=== PATIENT | male | born 1950 | race Caucasian/White ===

== ENCOUNTER 2020-07-18 13:15 | Inpatient (IN) | payer MEDICARE, MEDICAID ==
[~2020-07-18] VITALS: Ht 165.1 cm; Wt 60.5 kg
[2020-07-18] MEDS ORDERED: ASPirin 81 mg TAB PO ONE (14:15)
[2020-07-18 14:28] LABS: Albumin 3.3 g/dL (3.4-5.0); Anion Gap 5 (5-15); Blood Urea Nitrogen 23 mg/dL (7-18); Calcium 8.6 mg/dL (8.5-10.1); Carbon Dioxide 24 mmol/L (21-32); Chloride 107 mmol/L (98-107); Glucose 90 mg/dL (74-106); Magnesium 2.3 mg/dL (1.6-2.6); Potassium 4.1 mmol/L (3.5-5.1); Sodium 136 mmol/L (136-145)
[2020-07-18 14:29] LABS: INR 1.02 (0.9-1.15); Partial Thromboplastin Time 28.1 sec (23.0-31.2)
[2020-07-18 14:37] LABS: Alanine Aminotransferase 29 U/L (16-61); Alkaline Phosphatase 77 U/L (45-117); Aspartate Aminotransferase 21 U/L (15-37); BUN/Creatinine Ratio 27.7; Bilirubin, Total 0.4 mg/dL (0.2-1.0); GFR African American 118 mL/min; GFR Non-African American 98 mL/min; Total Protein 7.3 g/dL (6.4-8.2)
[2020-07-18 14:41] LABS: Basophils # (auto) 0 10 ^3/uL (0-0.2); Basophils % (auto) 0.5 % (0.0-2.0); Eosinophils # (auto) 0.1 10 ^3/uL (0-0.8); Eosinophils % (auto) 1.9 % (0.0-7.0); Hematocrit 40.4 % (41.0-53.0); Hemoglobin 14.3 g/dL (13.5-17.5); Lymphocytes # (auto) 1.8 10 ^3/uL (0.4-5.4); Lymphocytes % (auto) 27.6 % (10.0-50.0); Mean Corpuscular Hgb Conc. 35.3 g/dL (32.0-36.0); Mean Corpuscular Volume 87.9 fL (80.0-100.0); Monocytes # (auto) 0.7 10 ^3/uL (0-1.3); Monocytes % (auto) 10.4 % (0.0-12.0); Neutrophils # (auto) 3.8 10 ^3/uL (1.6-8.6); Neutrophils % (auto) 59.6 % (37.0-80.0); Platelet Count (auto) 243 10^3/uL (140-450); Red Cell Distribution Width 13.3 % (11.8-14.3); White Blood Cell 6.4 10^3/uL (4.4-10.8)
[2020-07-18] MEDS ORDERED: NITROGLYCERIN 0.4 MG SL TAB SL PRN ×3 (16:15→20:45)
[2020-07-18] MEDS ORDERED: LACTATED RINGER'S 1,000 ML IV ONE (16:15)
[2020-07-18] MEDS ORDERED: MORPHINE SULF INJ 2 MG/ML SYRINGE 1ML IV PRN ×3 (16:15→20:45)
[2020-07-18] MEDS ORDERED: ASPI-498 PO (16:55)
[2020-07-18] MEDS ORDERED: BUPR-36 PO (16:55)
[2020-07-18] MEDS ORDERED: POM PO (16:58)
[2020-07-18] MEDS: SODIUM CHLORIDE 0.9% 1,000 ML IV SCH (20:45)
[2020-07-18] MEDS ORDERED: LORazepam 0.5 MG TAB PO PRN (20:45)
[2020-07-18] MEDS ORDERED: METOPROLOL TARTRATE 25 MG TAB PO ONE (20:45)
[2020-07-18] MEDS ORDERED: HYDROcodone-ACET 5/325MG TAB PO PRN (20:45)
[2020-07-18] MEDS ORDERED: KETOROLAC TROMETH 30 MG/ML 1ML VIAL IV ONE (20:45)
[2020-07-18] MEDS ORDERED: ALUM & MAG HYDROX-SIMETH LIQ(MAALOX) 30 ML PO ONE (20:45)
[2020-07-18] MEDS ORDERED: MORPHINE SULFATE 4 MG/ML SYR/VIAL IV PRN (20:45)
[2020-07-18] MEDS ORDERED: ONDANSETRON HCL 4 MG/2 ML VIAL IV PRN (20:45)
[2020-07-18] MEDS ORDERED: ATORVASTATIN 20 MG TAB PO ONE (20:45)
[2020-07-18] MEDS: CARVEDILOL 3.125 MG TAB PO SCH ×2 (21:29→21:53)
[2020-07-18] MEDS: FAMOTIDINE (10MG/ML) 2ML VL IV SCH (21:35)
[2020-07-19 02:22] LABS: Urine Bacteria FEW /hpf (None Seen); Urine Blood Negative /uL (Negative); Urine Specific Gravity 1.019 (1.001-1.035); Urine WBC 2 /hpf (0 - 3)
[2020-07-19 02:55] LABS: Alcohol, Urine < 3.0 mg/dL (0-10); Amphetamine Screen, Urine NEGATIVE (NEGATIVE); Barbiturate Scree,Urine NEGATIVE (NEGATIVE); Benzodiazephine Screen, Urine NEGATIVE (NEGATIVE); Cocaine Screen, Urine NEGATIVE (NEGATIVE); Opiate Scree,Urine NEGATIVE (NEGATIVE); Phencyclidine Screen, Urine NEGATIVE (NEGATIVE)
[2020-07-19 03:02] LABS: Cannabinoid Screen, Urine POSITIVE (NEGATIVE)
[2020-07-19] MEDS ORDERED: KETOROLAC TROMETH 30 MG/ML 1ML VIAL IV PRN (03:30)
[2020-07-19] MEDS ORDERED: POM (05:18)
[2020-07-19] MEDS ORDERED: ASPI-543 PO (05:18)
[2020-07-19] MEDS ORDERED: BUPR100T14 PO (05:18)
[2020-07-19] MEDS: buPROPion HCL 100 MG TAB PO SCH ×2 (06:06→14:57)
[2020-07-19 07:39] LABS: Basophils # (auto) 0 10 ^3/uL (0-0.2); Basophils % (auto) 0.4 % (0.0-2.0); Eosinophils # (auto) 0.1 10 ^3/uL (0-0.8); Eosinophils % (auto) 1.9 % (0.0-7.0); Hematocrit 39.8 % (41.0-53.0); Lymphocytes # (auto) 1.1 10 ^3/uL (0.4-5.4); Lymphocytes % (auto) 20.3 % (10.0-50.0); Mean Corpuscular Hgb Conc. 35.2 g/dL (32.0-36.0); Monocytes # (auto) 0.4 10 ^3/uL (0-1.3); Monocytes % (auto) 8.1 % (0.0-12.0); Neutrophils # (auto) 3.8 10 ^3/uL (1.6-8.6); Neutrophils % (auto) 69.3 % (37.0-80.0); Nucleated Red Blood Cells % 0.1 %; Platelet Count (auto) 218 10^3/uL (140-450); Red Blood Cells 4.53 10^6/uL (4.5-5.90); Red Cell Distribution Width 13.2 % (11.8-14.3); White Blood Cell 5.5 10^3/uL (4.4-10.8)
[2020-07-19 08:00] LABS: INR 1.05 (0.9-1.15); Partial Thromboplastin Time 30.6 sec (23.0-31.2)
[2020-07-19 08:14] LABS: Albumin 3.3 g/dL (3.4-5.0); Calcium 8.8 mg/dL (8.5-10.1); Magnesium 2.7 mg/dL (1.6-2.6); Potassium 4.2 mmol/L (3.5-5.1)
[2020-07-19 08:18] LABS: BUN/Creatinine Ratio 19.8; Bilirubin, Total 0.6 mg/dL (0.2-1.0); Phosphorus 2.6 mg/dL (2.5-4.90); Total Protein 6.9 g/dL (6.4-8.2)
[2020-07-19 09:24] VITALS: BP 115/77
[2020-07-19] MEDS: FAMOTIDINE (10MG/ML) 2ML VL IV SCH ×2 (10:00→22:00)
[2020-07-19] MEDS: ENOXAPARIN SOD 60 MG/0.6 ML SYRINGE SC SCH (10:54)
[2020-07-19] MEDS: ASPirin 81 mg TAB PO SCH (10:55)
[2020-07-19] MEDS: DOCUSATE SOD 100 MG CAP PO SCH (10:55)
[2020-07-19] MEDS: CARVEDILOL 3.125 MG TAB PO SCH (10:57)
[2020-07-19 17:00] VITALS: BP 135/81
[2020-07-19 20:00] VITALS: BP 115/75
[2020-07-19] MEDS: SODIUM CHLORIDE 0.9% 1,000 ML IV SCH (20:45)
[2020-07-19 22:00] VITALS: BP 115/75
[2020-07-19] MEDS: ATORVASTATIN 20 MG TAB PO SCH (22:00)
[2020-07-20 05:00] VITALS: BP 128/87
[2020-07-20] MEDS: buPROPion HCL 100 MG TAB PO SCH ×2 (06:07→16:16)
[2020-07-20 06:37] LABS: Basophils # (auto) 0 10 ^3/uL (0-0.2); Basophils % (auto) 0.3 % (0.0-2.0); Eosinophils # (auto) 0.1 10 ^3/uL (0-0.8); Eosinophils % (auto) 2.1 % (0.0-7.0); Hematocrit 43.2 % (41.0-53.0); Hemoglobin 15.1 g/dL (13.5-17.5); Lymphocytes # (auto) 1.5 10 ^3/uL (0.4-5.4); Lymphocytes % (auto) 25.2 % (10.0-50.0); Mean Corpuscular Hemoglobin 31.1 pg (28.0-32.0); Mean Corpuscular Volume 88.9 fL (80.0-100.0); Monocytes # (auto) 0.5 10 ^3/uL (0-1.3); Monocytes % (auto) 9.1 % (0.0-12.0); Neutrophils # (auto) 3.8 10 ^3/uL (1.6-8.6); Neutrophils % (auto) 63.3 % (37.0-80.0); Nucleated Red Blood Cells % 0.1 %; Platelet Count (auto) 260 10^3/uL (140-450); Red Blood Cells 4.87 10^6/uL (4.5-5.90); Red Cell Distribution Width 13.3 % (11.8-14.3)
[2020-07-20 06:43] LABS: Chloride 106 mmol/L (98-107)
[2020-07-20 06:48] LABS: BUN/Creatinine Ratio 23.2; Blood Urea Nitrogen 19 mg/dL (7-18); Calcium 8.8 mg/dL (8.5-10.1); Carbon Dioxide 24 mmol/L (21-32); GFR African American 120 mL/min; GFR Non-African American 99 mL/min; Glucose 94 mg/dL (74-106)
[2020-07-20 07:32] LABS: Anion Gap 6 (5-15); Sodium 136 mmol/L (136-145)
[2020-07-20 08:00] VITALS: BP 130/75
[2020-07-20] MEDS: ENOXAPARIN SOD 60 MG/0.6 ML SYRINGE SC SCH (10:05)
[2020-07-20] MEDS: ASPirin 81 mg TAB PO SCH (10:05)
[2020-07-20] MEDS: FAMOTIDINE (10MG/ML) 2ML VL IV SCH ×2 (10:05→22:20)
[2020-07-20] MEDS: CARVEDILOL 3.125 MG TAB PO SCH ×2 (10:06→22:20)
[2020-07-20] MEDS: DOCUSATE SOD 100 MG CAP PO SCH (10:07)
[2020-07-20 15:30] VITALS: BP 116/71
[2020-07-20 22:00] VITALS: BP 129/80
[2020-07-20] MEDS: SODIUM CHLORIDE 0.9% 1,000 ML IV SCH (22:19)
[2020-07-20] MEDS: ATORVASTATIN 20 MG TAB PO SCH (22:28)
[2020-07-21 05:00] VITALS: BP 115/75
[2020-07-21] MEDS: buPROPion HCL 100 MG TAB PO SCH ×2 (06:23→19:03)
[2020-07-21 07:01] LABS: Basophils # (auto) 0 10 ^3/uL (0-0.2); Basophils % (auto) 0.4 % (0.0-2.0); Eosinophils # (auto) 0.1 10 ^3/uL (0-0.8); Eosinophils % (auto) 1.9 % (0.0-7.0); Lymphocytes # (auto) 1.4 10 ^3/uL (0.4-5.4); Lymphocytes % (auto) 19.8 % (10.0-50.0); Mean Corpuscular Hemoglobin 31.4 pg (28.0-32.0); Mean Corpuscular Hgb Conc. 35.8 g/dL (32.0-36.0); Mean Corpuscular Volume 87.7 fL (80.0-100.0); Monocytes # (auto) 0.6 10 ^3/uL (0-1.3); Monocytes % (auto) 8.7 % (0.0-12.0); Neutrophils # (auto) 5.1 10 ^3/uL (1.6-8.6); Neutrophils % (auto) 69.2 % (37.0-80.0); Nucleated Red Blood Cells % 0.1 %; Platelet Count (auto) 251 10^3/uL (140-450); Red Blood Cells 4.78 10^6/uL (4.5-5.90); Red Cell Distribution Width 13.3 % (11.8-14.3); White Blood Cell 7.3 10^3/uL (4.4-10.8)
[2020-07-21 07:02] LABS: Calcium 8.9 mg/dL (8.5-10.1)
[2020-07-21 07:04] LABS: BUN/Creatinine Ratio 16.3
[2020-07-21 08:00] VITALS: BP 121/82
[2020-07-21] MEDS ORDERED: ADENOSINE 51 MG in GIVE UN-DILUTED 0 ML IV STA (08:16)
[2020-07-21 08:30] VITALS: BP 135/83
[2020-07-21 09:59] VITALS: BP 109/73
[2020-07-21] MEDS: FAMOTIDINE (10MG/ML) 2ML VL IV SCH (12:00)
[2020-07-21] MEDS: ENOXAPARIN SOD 60 MG/0.6 ML SYRINGE SC SCH (12:00)
[2020-07-21] MEDS: ASPirin 81 mg TAB PO SCH (12:38)
[2020-07-21] MEDS: DOCUSATE SOD 100 MG CAP PO SCH (12:38)
[2020-07-21] MEDS: CARVEDILOL 3.125 MG TAB PO SCH (12:39)
[2020-07-21 16:00] VITALS: BP 116/66
== END 2020-07-21 22:22 | disposition home or self-care (01) | DRG 313 ==
LOC: EDBD 13:15 → ER 13:15 → TELE 16:07 → TELE-CENTR 07-19 04:11
PROVIDERS: ADMIT Hospitalist; ATTEND Internal Medicine
DX: R07.89 Other chest pain (principal); N17.0 Acute kidney failure with tubular necrosis; R55 Syncope and collapse; N18.9 Chronic kidney disease, unspecified; F32.9 Major depressive disorder, single episode, unspecified; I13.10 Hypertensive heart and chronic kidney disease without heart failure, with stage 1 through stage 4 chronic kidney disease, or unspecified chronic kidney disease; Z20.822 Contact with and (suspected) exposure to COVID-19; E78.5 Hyperlipidemia, unspecified; M43.00 Spondylolysis, site unspecified; Z81.8 Family history of other mental and behavioral disorders; Z82.49 Family history of ischemic heart disease and other diseases of the circulatory system; Z88.8 Allergy status to other drugs, medicaments and biological substances
CPT/HCPCS: 36415; 71045; 74176; 78452; 80048; 80053; 80307; 81001; 82150; 83036; 83690; 83735; 83880; 84100; 84443; 84484; 85025; 85379; 85610; 85730; 87040; 87086; 87426; 93005; 93017; 93306; 96365; G0378; J0153; J1885; J2405; J3490